=== PATIENT | male | born 1975 | race Caucasian/White ===

== ENCOUNTER 2018-12-30 14:43 | Emergency (ER) | payer SELFPAY ==
[~2018-12-30] VITALS: Ht 188 cm; Wt 138.6 kg
[2018-12-30 16:30] VITALS: BP 136/94
[2018-12-30 16:30] LABS: GLUCOSE,POINT OF CARE 93 MG/DL (70-110)
== END 2018-12-30 16:46 | disposition home or self-care (01) ==
LOC: EMS 14:46
DX: S81.802A Unspecified open wound, left lower leg, initial encounter (principal); E66.01 Morbid (severe) obesity due to excess calories; Z68.39 Body mass index [BMI] 39.0-39.9, adult; X58.XXXA Exposure to other specified factors, initial encounter; Y93.89 Activity, other specified; Y92.89 Other specified places as the place of occurrence of the external cause; Y99.8 Other external cause status
CPT/HCPCS: 82948